=== PATIENT | male | born 1985 | race Caucasian/White ===

== ENCOUNTER 2023-08-23 16:08 | Emergency (ER) | payer OTHER ==
[2023-08-23] MEDS ORDERED: SILVER SULFADIAZINE 1% 25 GM TOP ONE (16:39)
[2023-08-23] MEDS ORDERED: HYDROCODONE/APAP 10/325 TAB ONE (16:39)
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
[2023-08-23 19:32] VITALS: BP 112/73; TEMP 98; O2SAT 100
== END 2023-08-23 19:09 | disposition home or self-care (01) ==
LOC: ER 16:08
DX: T21.12XA Burn of first degree of abdominal wall, initial encounter (principal); T21.06XA Burn of unspecified degree of male genital region, initial encounter; T21.02XA Burn of unspecified degree of abdominal wall, initial encounter; Z88.2 Allergy status to sulfonamides
CPT/HCPCS: 99284